=== PATIENT | female | born 1950 | race Caucasian/White ===

== ENCOUNTER → 2024-06-19 08:22 | Outpatient (REF) | payer OTHER, SELFPAY | LOC: WDC 08:22 | PROVIDERS: ATTENDING PHYSICIAN Physician Assistant Medical | DX: Z12.31 Encounter for screening mammogram for malignant neoplasm of breast (principal) | CPT/HCPCS: 77063; 77067 ==

== ENCOUNTER → 2025-05-06 08:03 | Outpatient (REF) | payer OTHER, SELFPAY | LOC: RAD 08:03 | PROVIDERS: ATTENDING PHYSICIAN Internal Medicine Rheumatology; FAMILY PHYSICIAN Physician Assistant Medical | DX: M81.0 Age-related osteoporosis without current pathological fracture (principal) | CPT/HCPCS: 77080 ==

== ENCOUNTER 2025-07-03 21:07 | Emergency (ER) | payer OTHER, SELFPAY ==
[2025-07-03 21:10] VITALS: BMI 16.4
[2025-07-03 21:11] VITALS: BP 123/53
--- NOTE | 2025-07-03 21:43 | ED.GENMED ---
History of Present Illness
General
Chief Complaint: Nose Bleed
Time Seen by Provider: 07/03/25 21:26
History of Present Illness
History of Present Illness:
Patient presents to the emergency department with resolved episode of epistaxis. States she had a minor episode this morning that self resolved. Night she had a more significant episode of bleeding. She states it was bleeding for at least 20
minutes and she went through a whole box of Kleenex. Denies any anticoagulation.
Past History
Past History
ED Past Medical History: Other (rectal bleeding, Parkinsons)
ED Past Surgical History: None
Social History
Tobacco: Non-smoker
Alcohol: None
Personal:
Living: with family
Phy Exam
Physical Exam
Physical Exam:
General: No acute distress
Head: NCAT
Nose: Prior area of bleeding noted to R anterior nasal septum. Currently hemostatic
Throat: no bleeding in oropharynx
Neck, Normal in appearance, no swelling
Respiratory: No Respiratory distress
Abdomen: No distension
Ext: no edema
Neuro: LUJAN, AOx4
Psych: Normal affect
Skin: Normal color
Course
Vital Signs
Initial and Last Documented VS:
Initial Vital Signs
Temp Pulse Resp BP Pulse Ox
97.7 F 72 18 123/53 95
07/03/25 21:11 07/03/25 21:11 07/03/25 21:11 07/03/25 21:11 07/03/25 21:11
Last Documented Vital Signs
Temp Pulse Resp BP Pulse Ox
97.7 F 72 18 123/53 95
07/03/25 21:11 07/03/25 21:11 07/03/25 21:11 07/03/25 21:11 07/03/25 21:46
*Pulse Oximetry
SaO2: 95
Oxygen Mode of Delivery: Room air
Patient hypoxic: no
*Critical Care Note
Total Time (30-74mins, 75-104mins- exclusive of procedures): Not Applicable
ED Attending Note
ED Attending Note
ED Attending Note:
Bleeding is resolved. Patient is hemodynamically stable without clinical signs of significant anemia or hypovolemia on exam. She has no history of coagulopathy and is not on any anticoagulation. Likely in the setting of warm dry air in her house.
Area of prior bleeding was cauterized with silver nitrate
-
Portions of this chart may have been created with voice recognition software.� Occasional wrong word or��sound alike� substitutions may have occurred due to the inherent limitations of voice recognition software.
Discharge Plan
Departure
Patient Disposition: Home (Routine Discharge)
Date of Disposition: 07/03/25
Time of Disposition: 21:59
Patient with high blood pressure during this ER visit?: No
Discharge Problem:
Epistaxis
Instructions: Nosebleeds (DC)
Prescriptions:
No Action
famotidine 40 MG tablet
40 mg PO QPM PRN (Reason: indegestion)
Chineese Herbs Powder
1 dose PO DAILY
Multivitamin
1 tab PO DAILY
Referrals:
Jaye Dempsey PA-C [Family Provider, Family Practice]
Interventions
Interventions:
*Risk Screen - Suicide Last Done: 07/03/25 21:17
*General Assessment Last Done: 07/03/25 21:17
*Neglect/Abuse Screening Last Done: 07/03/25 21:17
*ED COVID-19 Vaccine History Last Done: 07/03/25 21:17
*ED Influenza Vaccine History Last Done: 07/03/25 21:17
[facility] Fall Risk Assessment Tool Last Done: 07/03/25 21:11
*Nursing Disposition Last Done: 07/03/25 22:10
ED-EENT Assessment Last Done: 07/03/25 21:17
Discharge Date and Time
Discharge Date/Time: 07/03/25 22:13
Print Language: [id number]
== END 2025-07-03 22:13 | disposition home or self-care (01) ==
LOC: EMR 21:07
PROVIDERS: EMERGENCY PHYSICIAN Emergency Medicine; FAMILY PHYSICIAN Physician Assistant Medical
DX: R04.0 Epistaxis (principal); G20.A1 Parkinson's disease without dyskinesia, without mention of fluctuations
CPT/HCPCS: 99283; 30901